=== PATIENT | female | born 1990 | race Caucasian/White ===

== ENCOUNTER 2024-08-06 05:02 | Emergency (ER) | payer BC, SELFPAY ==
[2024-08-06 05:03] VITALS: BP 131/73; PULSE 90; RESP 14; TEMP 37.2; O2SAT 100; BMI 33.4
[2024-08-06 05:07] VITALS: BP 180/112; PULSE 97; O2SAT 100
[2024-08-06 05:10] VITALS: BP 131/73; PULSE 95; O2SAT 97
--- NOTE | 2024-08-06 05:15 | ECG_ITS ---
APPROVED REPORT Exam: Resting ECG HR:82 bpm ECG Measurements Heart Rate 82 AXES VA 153 P 73 QRSd 89 QRS 80 QT 354 T 12 QTc 393 Conclusion SINUS RHYTHM POSSIBLE RIGHT ATRIAL ENLARGEMENT [0.25mV P-WAVE] NONSPECIFIC T-WAVE ABNORMALITY BORDERLINE ECG UNCONFIRMED REPORT Electronically signed by : ANGEL CHAVEZ, 08/07/2024 06:53:53
--- NOTE | 2024-08-06 05:25 | XR_ITS ---
PROCEDURE INFORMATION: Exam: XR Chest Exam date and time: 08/06/2024 5:57 AM Age: 34 years old Clinical indication: Pain; Chest pressure; Additional info: Left pleuritic cp TECHNIQUE: Imaging protocol: Radiologic exam of the chest. Views: 1 view. COMPARISON: No relevant prior studies available. FINDINGS: Lungs: Unremarkable. No consolidation. Pleural spaces: Unremarkable. No pleural effusion. No pneumothorax. Heart/Mediastinum: Unremarkable. No cardiomegaly. Bones/joints: Unremarkable. IMPRESSION: No acute findings.
[2024-08-06 05:41] LABS: Basophils % 0.6 % (0.1-2.0); Eosinophils # 0.1 K/mm3 (0.0-0.4); Eosinophils % 1.4 % (0.1-12.0); Hematocrit 38.6 % (37.0-47.0); Hemoglobin 12.4 g/dL (12.2-16.2); Lymphocytes # 2.3 K/mm3 (0.7-4.5); Lymphocytes % 46.1 % (10-50); Mean Corpuscular HGB Conc 32.1 g/dL (31.8-35.4); Mean Corpuscular Hemoglobin 25.6 pg (27.0-31.2); Mean Corpuscular Volume 79.8 fl (81-99); Monocytes # 0.4 K/mm3 (0.1-1.0); Monocytes % 7.8 % (1.7-9.3); Neutrophils # 2.2 K/mm3 (1.8-7.8); Neutrophils % 43.9 % (37.0-80.0); Platelet Count 196 K/mm3 (142-424); Red Blood Count 4.84 M/mm3 (4.20-5.40)
[2024-08-06 05:53] LABS: HCG Qualitative, Serum Negative (Negative)
[2024-08-06 06:00] LABS: Alanine Aminotransferase 39 U/L (12-78); Albumin Level 4.1 g/dl (3.5-5.0); Albumin/Globulin Ratio 1.3 (1.1-1.8); Alkaline Phosphatase 57 U/L (38-126); Anion Gap 13.2 mEq/L (5-15); Aspartate Amino Transferase 36 U/L (14-36); Bilirubin,Total 0.2 mg/dl (0.2-1.3); Blood Urea Nitrogen 12 mg/dl (7-17); Calcium 8.7 mg/dl (8.4-10.2); Carbon Dioxide 25 mmol/L (22.0-30.0); Chloride 106 mmol/L (98-107); Creatinine Clearance Estimated 140 mL/min (50-200); Estimated Glomerular Filt Rate 72 ml/min (>60); GFR (African American) 87 ML/MIN (>60); Globulin 3.2 g/dL (1.3-3.2); Glucose 99 mg/dl (74-100); Potassium 4.2 mmoL/L (3.5-5.1); Sodium 140 mmol/L (136-145); Total Protein,Serum 7.3 g/dl (6.3-8.2)
[2024-08-06 06:05] LABS: D-Dimer 0.76 ug/mL (0.0-0.5)
--- NOTE | 2024-08-06 06:12 | [facility].EDGENADL ---
Discharge Plan Disposition Patient Disposition: Home, Self-Care Prescriptions Prescriptions: No Action L norgest/e.estradiol-e.estrad [Jaimiess] 0.15 mg-30 mcg (84)/10 mcg (7) tablets,dose pack,3 month 1 tab PO DAILY Zepbound 12.5 mg/0.5 mL pen injector 12.5 mg SQ WEEKLY Referrals Follow up/Referrals: Silvana Jaffe APRN [Primary Care Provider] - See instructions Activity Restrictions/Add. Instructions Additional Instructions/Restrictions: Please follow-up with your primary care provider. Please return to the emergency department if you develop any new or worsening symptoms or become concerned for your health. Clinical Impressions Clinical Impression: Chest pain Qualifiers: Chest pain type: chest pain on breathing Qualified Code(s): R07.1 - Chest pain on breathing Print Language Print Language: Hungarian Discharge ED Provider: Albin Moe Adult HPI General Chief complaint: PAIN Stated complaint: lower chest, left shoulder pain Time Seen by Provider: 08/06/24 05:05 Mode of Arrival: Ambulatory Source of Information: Patient Limitations: No Limitations Description of Symptoms (Recalled from ER Triage Doc. by RN): pt reports pain that begins in the left collar bone and radiates into her ribs with deep breathing since monday. pt reports she has had a similar episode since breaking her collar bone but usually doesnt persist this long. pt denies any trauma or known injury. History of Present Illness HPI narrative: 34-year-old female without significant past medical history presents for left-sided collarbone pain that radiates into her ribs with deep breathing. She reports that she broke her collarbone many years ago and occasionally this pain will be present as a result. This time the pain is lasted much longer than normal. She denies any significant recent trauma. Denies any other injuries. She denies any history of blood clots. Denies any recent cough congestion fever. She is on contraceptives. Related Data Home Medications ?Medication ?Instructions ?Recorded ?Confirmed L norgest/E estradiol-E estrad 1 tab PO DAILY 08/06/24 08/06/24 0.15 mg-30 mcg (84)/10 mcg(7) tabs,3mos (Jaimiess) tirzepatide (weight loss) 12.5 12.5 mg SQ WEEKLY 08/06/24 08/06/24 mg/0.5 mL subcutaneous pen injector (Zepbound) Allergies Allergy/AdvReac Type Severity Reaction Status Date / Time No Known Allergies Allergy Verified 08/06/24 05:15 [facility] Disclaimer: The information contained in this section may have been updated after the patient was seen, as this information can be updated by other users. Social History Smoking Status: Never smoker alcohol intake: never current occupational status: employed Travel in the last 8 weeks: None ROS Obtained: Yes All systems reviewed & no additional complaints except as documented Physical Exam General General appearance: alert and in no apparent distress Head Head exam: atraumatic and normocephalic Eye Eye exam: Present normal appearance, PERRL and EOMI ENT ENT exam: Present normal oropharynx and normal external ear exam Neck Neck exam: Present normal inspection and full ROM Chest Chest inspection: Present normal inspection and symmetric chest wall rise; Absent tenderness Respiratory Respiratory exam: Present normal lung sounds bilaterally; Absent respiratory distress Cardiovascular Cardiovascular exam: Present regular rate and normal rhythm Abdominal Exam Abdominal exam: Present soft; Absent distention, tenderness or guarding Extremities Exam Extremities exam: Present normal inspection; Absent edema or joint swelling Back Exam Back exam: Present normal inspection; Absent tenderness Neurological Exam Neurological exam: Present alert and oriented X3; Absent motor sensory deficit Psychiatric Psychiatric exam: Present normal affect and normal mood Skin Skin exam: Present warm, dry and normal color Lymphatic Lymphatic Findings: no adenopathy Medical Decision Making Medical Records Medical records reviewed: Yes I reviewed the patient's medical records. Screening: Per USPSTF and CDC recommendations, given the prevalence of disease in our region, it is our hospital?s policy to screen for HIV and viral Hepatitis for all patients aged 18 and over and those with ongoing risk factors. Luis Inquiry Pt receiving controlled substance: No Luis was queried for this patient: No Vital Signs: 08/06/24 05:03 08/06/24 05:07 08/06/24 05:10 Temperature 99.0 F Temperature Source Oral Pulse Rate 97 H 95 H Pulse Rate [Right] 90 Respiratory Rate 14 Blood Pressure 180/112 H 131/73 Blood Pressure [Right Arm] 131/73 Blood Pressure Mean [Right Arm] 92 02 Sat by Pulse Oximetry 100 100 97 Oxygen Delivery Method Room Air Room Air Room Air Lab Data Lab results reviewed: Yes I reviewed the patient's lab results. Lab Results 08/06/24 05:31: WBC 5.0, RBC 4.84, Hgb 12.4, Hct 38.6, MCV 79.8 L, MCH 25.6 L, MCHC 32.1, RDW 14.0, Plt Count 196, MPV 12.0 H, Neut % (Auto) 43.9, Lymph % (Auto) 46.1, Mcclain % (Auto) 7.8, Eos % (Auto) 1.4, Baso % (Auto) 0.6, Neut # (Auto) 2.2, Lymph # (Auto) 2.3, Mcclain # (Auto) 0.4, Eos # (Auto) 0.1, Baso # (Auto) 0.0, D-Dimer 0.76 H, Sodium 140, Potassium 4.2, Chloride 106, Carbon Dioxide 25, Anion Gap 13.2, BUN 12, Creatinine 0.90, Estimated Creat Clear 140, Estimated GFR 72, Est GFR ( Amer) 87, Glucose 99, Calcium 8.7, Total Bilirubin 0.2, AST 36, ALT 39, Alkaline Phosphatase 57, Troponin I < 0.01, Total Protein 7.3, Albumin 4.1, Globulin 3.2, Albumin/Globulin Ratio 1.3, Serum HCG, Qual Negative 08/06/24 05:31 08/06/24 05:31 Orders (Tests/Meds): ORDERS Category Date Time Status CXR --portable [XR chest portable] Stat Exams 08/06/24 05:25 Taken CBC w/Auto Diff [Complete Blood Count Auto Diff] Stat Lab 08/06/24 05:31 Completed CMP [Comprehensive Metabolic Panel] Stat Lab 08/06/24 05:31 Completed D-Dimer Stat Lab 08/06/24 05:31 Completed Serum [HCG Qualitative, Serum] Stat Lab 08/06/24 05:31 Completed Troponin I Q3H Lab 08/06/24 05:31 Completed Troponin I Q3H Lab 08/06/24 08:30 Ordered ECG Data Tracing #1: I reviewed this ECG and interpreted as documented below: Sinus rhythm, rate of 82, no concerning ST changes no evidence of arrhythmia ECG initial impression date: 08/06/24 ECG initial impression time: 05:15 HEART Score History (anamnesis): Slightly suspicious ECG: Normal Age: <45 years Risk factors: No known risk factors Troponin: </= normal limit HEART Score: 0 Medical Decision Narrative: 34-year-old female without significant past medical history presents with left-sided pleuritic chest pain for the last few days. History was obtained via interactive discussion with patient. On arrival, patient is [afebrile, hemodynamically stable, satting appropriately, alert, oriented x4, GCS 15], moving all extremities spontaneously. Full physical exam performed and significant for no significant physical exam abnormalities Differential includes but is not limited to PE, musculoskeletal pain, pericarditis pleurisy pneumonia. Workup initiated including CBC CMP D-dimer troponin EKG chest x-ray. On re-evaluation, patient [remains afebrile, HD stable.] Laboratory workup independently interpreted by me and significant for negative D-dimer by years criteria. Negative initial troponin. Given duration of symptoms only 1 troponin is necessary. No significant electrolyte derangement, normal renal function, no leukocytosis. Imaging independently interpreted by me and significant for clear lungs bilaterally without focal opacity. See radiology read for full review of final results. CT PE was considered, but deemed unnecessary due to history and exam, negative dimer. Given patient history, exam and workup, patient's presentation most likely represents musculoskeletal pain related to the patient's prior collarbone fracture. Patient was discharged in stable condition with return precautions. Procedures Risk/Benefits of Procedure(s) Were Explained: Yes Critical Care Critical Care Time Critical Care Time: No
[2024-08-06 06:23] LABS: Troponin I < 0.01 ng/ml (0.00-0.034)
[2024-08-06 06:39] VITALS: BP 135/78; PULSE 88; RESP 18; TEMP 37.2; O2SAT 100
== END 2024-08-06 06:40 | disposition home or self-care (01) ==
PROVIDERS: Emergency Provider Emergency Medicine; PCP Nurse Practitioner Family
DX: R07.1 Chest pain on breathing (principal); M25.512 Pain in left shoulder; R07.89 Other chest pain
CPT/HCPCS: 71045; 80053; 84484; 84703; 85025; 85378; 93005; 99284